=== PATIENT | male | born 1970 | race Caucasian/White ===

== ENCOUNTER 2021-05-24 23:11 | Emergency (ER) | payer MEDICARE, MEDICAID, SELFPAY ==
[2021-05-24 23:02] VITALS: BP 125/97; PULSE 105; RESP 22; TEMP 36.6; O2SAT 90; BMI 44.6
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
[2021-05-25 04:25] VITALS: BP 110/85; PULSE 107; RESP 18; TEMP 36.7; O2SAT 94
== END 2021-05-25 04:45 | disposition home or self-care (01) ==
PROVIDERS: Emergency Provider Emergency Medicine; PCP Internal Medicine
DX: T20.20XA Burn of second degree of head, face, and neck, unspecified site, initial encounter (principal); J44.9 Chronic obstructive pulmonary disease, unspecified; W40.8XXA Explosion of other specified explosive materials, initial encounter; Y92.019 Unspecified place in single-family (private) house as the place of occurrence of the external cause
CPT/HCPCS: 71045; 99282

== ENCOUNTER 2021-06-30 21:27 | Emergency (ER) | payer MEDICARE, MEDICAID, SELFPAY ==
[2021-06-30 21:28] VITALS: BP 143/101; PULSE 106; RESP 20; TEMP 36.6; O2SAT 84; BMI 34.5
[2021-06-30 21:39] VITALS: BMI 34.5
[2021-06-30 22:00] VITALS: BP 149/109; PULSE 105; O2SAT 94
--- NOTE | 2021-06-30 22:05 | US_ITS ---
PROCEDURE INFORMATION: Exam: US Scrotum Exam date and time: 06/30/2021 10:05 PM Age: 51 years old Clinical indication: Swelling, testicles or scrotum; Additional info: Swelling in scrotum TECHNIQUE: Imaging protocol: Real-time ultrasound of the scrotum and contents with color Doppler and image documentation. COMPARISON: CT ABDOMEN PELVIS WO CON 06/30/2021 11:05 PM FINDINGS: Right testicle: Right testicle measures 2.7 x 4.0 x 2.7 cm. Normal color flow. No evidence of torsion. No mass. Left testicle: Left testicle measures 2.6 x 3.9 x 2.4 cm. Normal color flow. No evidence of torsion. No mass. Epididymides: Normal. Scrotum: No hydrocele. There is generalized scrotal subcutaneous edema. IMPRESSION: 1. Unremarkable appearance of the bilateral testicles. No evidence of torsion. 2. Generalized scrotal subcutaneous edema.
--- NOTE | 2021-06-30 22:05 | CT_ITS ---
PROCEDURE INFORMATION: Exam: CT Abdomen And Pelvis Without Contrast Exam date and time: 06/30/2021 10:05 PM Age: 51 years old Clinical indication: Other: Scrotal swelling TECHNIQUE: Imaging protocol: Computed tomography of the abdomen and pelvis without contrast. Radiation optimization: All CT scans at this facility use at least one of these dose optimization techniques: automated exposure control; mA and/or kV adjustment per patient size (includes targeted exams where dose is matched to clinical indication); or iterative reconstruction. COMPARISON: CR XR CHEST PORTABLE 05/24/2021 11:37 PM FINDINGS: Lungs: Partial atelectatic collapse of the bilateral lower lobes, right greater than left. Superimposed pneumonia not excluded. Pleural spaces: Bilateral pleural effusions are partially visualized, which appear moderate to large on the right and moderate on the left. Liver: Nodular contour of the liver suggesting cirrhosis. Liver is heterogeneous in attenuation, without evidence of a focal mass on this noncontrast exam. Couple of calcified granulomas noted within liver. Liver is enlarged measuring 18.5 cm in craniocaudal dimension. Gallbladder and bile ducts: No wall thickening. No calcified stones. No biliary dilation. Pancreas: [id number] fatty atrophy of the pancreas. Spleen: No splenomegaly. Numerous calcified splenic granulomas. Adrenal glands: Nodular thickening of the bilateral adrenal gland suggesting hyperplasia. Kidneys and ureters: No hydronephrosis. No nephrolithiasis.. Stomach and bowel: No bowel dilation or obstruction. Small hiatal hernia. Moderate amount of solid stool throughout the colon. Appendix: Surrounded by ascites, but appears nondilated. No specific features of appendicitis. Intraperitoneal space: Diffuse mesenteric edema/congestion. Moderate volume of ascites. No pneumoperitoneum. Vasculature: Atherosclerotic calcifications. No abdominal aortic aneurysm. Lymph nodes: Calcified left hilar mediastinal lymph nodes compatible with old granulomatous disease. Urinary bladder: Bladder is decompressed by Summers catheter. Trace gas within the bladder lumen presumably relates to catheterization. Reproductive: Unremarkable as visualized. Scrotum is not seen. Bones/joints: Spondylosis, most advanced at L4-L5. No acute fracture. Soft tissues: Gynecomastia suggested. There is marked body wall edema. No subcutaneous fluid collection identified, within limits of noncontrast assessment. Asymmetric swelling of the distal left rectus abdominus muscle, which continues into the left retropubic space, presumably due to hemorrhage. Hematoma measures approximately 4.0 x 1.5 cm in cross-section, spanning a craniocaudal length of nearly 15 cm. IMPRESSION: 1. Suspected cirrhosis of the liver. There is diffuse body wall edema, moderate volume ascites, and layering right greater than left pleural effusions. 2. Presumed hematoma in the distal left rectus sheath, measuring approximately 4.0 x 1.5 x 15 cm. 3. Scrotum and perineum not included within the obtained field of view.
[2021-06-30 22:07] LABS: Microscopic, Urine URINE MICROSCOPIC (MICROSCOPIC)
[2021-06-30 22:08] LABS: Appearance,Urine SL CLOUDY (Clear); Blood, Urine 1+ (Negative); Color,Urine DK YELLOW (Yellow); Glucose,Urine (UA) Negative (Negative); Ketones,Urine Negative (Negative); Leukocyte Esterase,Urine Negative (Negative); Nitrate,Urine Negative (Negative); PH,Urine 5.5 (5.0-8.5); Protein,Urine 3+ (Negative); Specific Gravity, Urine >= 1.030 (1.005-1.030)
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
[2021-06-30 22:20] LABS: Bacteria,Urine Trace /lpf; Bilirubin,Urine 2+ (Negative); Mucus,Urine 1+ /lpf; WBC,Urine Occasional #/hpf (0-3)
[2021-06-30 22:39] VITALS: BP 129/94; PULSE 79; O2SAT 96
[2021-06-30 22:57] LABS: Basophils # 0.1 K/mm3 (0-0.2); Basophils % 1.2 % (0.1-2.0); Eosinophils # 0.2 K/mm3 (0.0-0.4); Eosinophils % 2.4 % (0.1-12.0); Hematocrit 44.9 % (42.0-52.0); Hemoglobin 13.8 g/dL (14.1-18.0); Lymphocytes # 0.8 K/mm3 (0.7-4.5); Lymphocytes % 9.4 % (10-50); Mean Corpuscular HGB Conc 30.8 g/dL (31.8-35.4); Mean Corpuscular Hemoglobin 27.2 pg (27.0-31.2); Mean Corpuscular Volume 88.3 fl (80-94); Mean Platelet Volume 7.7 fl (7.4-10.4); Monocytes # 0.4 K/mm3 (0.1-1.0); Monocytes % 5.4 % (1.7-9.3); Neutrophils # 6.6 K/mm3 (1.8-7.8); Neutrophils % 81.6 % (37.0-80.0); Platelet Count 247 K/mm3 (142-424); Red Blood Count 5.09 M/mm3 (4.60-6.20); Red Cell Distribution Width 18.2 % (11.5-17.5); White Blood Count 8.1 K/mm3 (4.8-10.8)
[2021-06-30 23:00] VITALS: BP 130/106; PULSE 104; O2SAT 95
[2021-06-30 23:00] LABS: Alanine Aminotransferase 14 U/L (12-78); Albumin Level 3.5 g/dl (3.5-5.0); Albumin/Globulin Ratio 1.2 (1.1-1.8); Alkaline Phosphatase 110 U/L (38-126); Aspartate Amino Transferase 18 U/L (17-59); Bilirubin,Total 1.1 mg/dl (0.2-1.3); Blood Urea Nitrogen 23 mg/dl (9-20); Calcium 8.8 mg/dl (8.4-10.2); Carbon Dioxide 36 mmol/L (22.0-30.0); Chloride 94 mmol/L (98-107); Creatinine Clearance Estimated 142 mL/min (50-200); Estimated Glomerular Filt Rate 79 ml/min (>60); GFR (African American) 96 ML/MIN (>60); Globulin 2.9 g/dL (1.3-3.2); Glucose 229 mg/dl (74-100); Sodium 135 mmol/L (136-145); Total Protein,Serum 6.4 g/dl (6.3-8.2)
[2021-06-30 23:05] LABS: C-Reactive Protein 7.6 mg/L (0-4)
[2021-06-30 23:17] VITALS: BP 126/91; PULSE 99; O2SAT 97
[2021-06-30 23:18] LABS: Procalcitonin 0.081 ng/mL (0.0-2.0)
[2021-06-30 23:30] VITALS: BP 125/103; PULSE 100; O2SAT 98
[2021-06-30 23:49] LABS: Erythrocyte Sedimentation Rate 6 mm/hr (0-15)
[2021-07-01] VITALS: BP 132/99; BP 136/105; PULSE 103; PULSE 96; O2SAT 93; O2SAT 98
[2021-07-01 01:00] VITALS: BP 115/89; PULSE 94; O2SAT 94
[2021-07-01 01:30] VITALS: BP 122/87; PULSE 95; O2SAT 94
[2021-07-01 02:11] VITALS: BP 128/87; PULSE 92; RESP 20; TEMP 36.7; O2SAT 96
== END 2021-07-01 02:15 | disposition home or self-care (01) ==
PROVIDERS: Emergency Provider Emergency Medicine; PCP Internal Medicine
DX: R33.8 Other retention of urine (principal); N50.89 Other specified disorders of the male genital organs
CPT/HCPCS: 51702; 74176; 76870; 80053; 81001; 84145; 85025; 85651; 86140; 99284